=== PATIENT | male | born 1975 | race Native Hawaiian/Other Pacific Islander ===

== ENCOUNTER 2023-01-26 08:54 | Emergency (ER) | payer OTHER ==
[~2023-01-26] VITALS: Ht 149.9 cm; Wt 54.4 kg
[2023-01-26 09:04] VITALS: BP 139/94; TEMP 98.5
== END 2023-01-26 09:49 | disposition home or self-care (01) ==
LOC: ED 08:54
DX: H11.32 Conjunctival hemorrhage, left eye (principal); W19.XXXA Unspecified fall, initial encounter
CPT/HCPCS: 99282